=== PATIENT | female | born 2000 | race American Indian/Alaskan Native ===

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

== ENCOUNTER 2022-04-07 22:40 | Emergency (ER) | payer OTHER ==
[~2022-04-07] VITALS: Ht 157.5 cm; Wt 97.3 kg
[~2022-04-07 22:40] MED LIST changes: +AMOX875T2 PO; +CIPR0.3S6 OS
[2022-04-07 22:41] VITALS: BP 155/91
[2022-04-07 23:26] LABS: BASO % 0.4 % (0.0-1.0); EOS # 0.8 10^3/uL (0.0-0.5); HEMATOCRIT 40.7 % (36.0-47.0); HEMOGLOBIN 13.4 g/dl (12.0-15.5); LYMPH # 3.2 10^3/uL (1.5-5.0); MEAN CORPUSCULAR HEMOGLOBIN 29.8 pg (27.0-33.0); MEAN CORPUSCULAR HGB CONC 32.9 g/dl (32.0-36.5); MEAN CORPUSCULAR VOLUME 90.4 fl (80.0-96.0); MONO # 0.8 10^3/uL (0.0-0.8); MONO % 7.7 % (2.0-8.0); NEUTROPHILS # 5.5 10^3/uL (1.5-8.5); NEUTROPHILS % 52.5 % (36.0-66.0); PLATELET COUNT, AUTOMATED 399 10^3/uL (150-450); WHITE BLOOD COUNT 10.4 10^3/uL (4.0-10.0)
[2022-04-07 23:29] LABS: URINE PREG TEST NEGATIVE (NEGATIVE)
[2022-04-07 23:58] LABS: ALBUMIN 3.9 GM/DL (3.2-5.2); ALT/SGPT 31 U/L (12-78); BILIRUBIN,DIRECT < 0.1 MG/DL (0.0-0.2); BILIRUBIN,TOTAL 0.4 MG/DL (0.2-1.0); BLOOD UREA NITROGEN 14 MG/DL (7-18); CALCIUM LEVEL 9.1 MG/DL (8.5-10.1); CARBON DIOXIDE LEVEL 28 MEQ/L (21-32); CHLORIDE LEVEL 103 MEQ/L (98-107); CREATININE FOR GFR 0.67 MG/DL (0.55-1.30); GLUCOSE, FASTING 95 MG/DL (70-100); LIPASE 131 U/L (73-393); POTASSIUM SERUM 3.8 MEQ/L (3.5-5.1); SODIUM LEVEL 138 MEQ/L (136-145); TOTAL PROTEIN 7.2 GM/DL (6.4-8.2)
== END 2022-04-07 23:47 | disposition left against medical advice (07) ==
LOC: M ED 22:40
DX: Z53.21 Procedure and treatment not carried out due to patient leaving prior to being seen by health care provider (principal)

== ENCOUNTER → 2022-05-14 | Outpatient (REF) ==
[2022-05-14 14:43] LABS: RSV AMPLIFICATION NEGATIVE (NEGATIVE)
== END ==
LOC: M EMP 07:59
PROVIDERS: ATTEND Family Medicine
DX: Z11.59 Encounter for screening for other viral diseases (principal)

== ENCOUNTER → 2022-07-17 | Outpatient (REF) | payer OTHER ==
[2022-07-17 18:02] LABS: GC DNA AMPLIFICATION NEGATIVE (NEGATIVE)
== END ==
LOC: M LAB REF 16:02
PROVIDERS: ATTEND Physician Assistant
DX: H10.33 Unspecified acute conjunctivitis, bilateral (principal)

== ENCOUNTER 2022-10-14 22:45 | Inpatient (IN) | payer OTHER ==
[~2022-10-14] VITALS: Ht 157.5 cm; Wt 93.4 kg
[~2022-10-14 22:45] MED LIST changes: +CIPR0.3S37 OS; -CIPR0.3S6 OS
[2022-10-14] MEDS ORDERED: HOME MED LIST COMPLETE! XX SCH (23:40)
[2022-10-15 00:38] LABS: HEMATOCRIT 40.1 % (36.0-47.0); HEMOGLOBIN 13.3 g/dl (12.0-15.5); MEAN CORPUSCULAR HEMOGLOBIN 29.8 pg (27.0-33.0); MEAN CORPUSCULAR HGB CONC 33.2 g/dl (32.0-36.5); MEAN CORPUSCULAR VOLUME 89.9 fl (80.0-96.0); PLATELET COUNT, AUTOMATED 392 10^3/uL (150-450); RED BLOOD COUNT 4.46 10^6/uL (4.00-5.40); WHITE BLOOD COUNT 11.7 10^3/uL (4.0-10.0)
[2022-10-15 00:57] LABS: AMPHETAMINES LEVEL URINE NEGATIVE (NEGATIVE); BARBITURATES URINE NEGATIVE (NEGATIVE); BENZODIAZEPINES URINE NEGATIVE (NEGATIVE); COCAINE METABOLITE URINE NEGATIVE (NEGATIVE); METHADONE URINE NEGATIVE (NEGATIVE); PHENCYCLIDINE URINE NEGATIVE (NEGATIVE)
[2022-10-15 00:58] LABS: OPIATES URINE NEGATIVE (NEGATIVE)
[2022-10-15 01:04] LABS: CANNABINOIDS URINE POSITIVE (NEGATIVE)
[2022-10-15 01:12] LABS: ETHYL ALCOHOL (ETHANOL) 0.005 % (0.000-0.010)
[2022-10-15 01:14] LABS: ACETAMINOPHEN LEVEL < 2.0 UG/ML (10.0-20.0)
[2022-10-15 01:15] LABS: ALBUMIN 4.1 G/DL (3.2-5.2); ALKALINE PHOSPHATASE 93 U/L (46-116); ALT/SGPT 21 U/L (7.0-40); AST/SGOT 21 U/L (<34); BILIRUBIN,DIRECT 0.1 MG/DL (<0.4); BILIRUBIN,TOTAL 0.4 MG/DL (0.3-1.2); BLOOD UREA NITROGEN 13 MG/DL (9-23); CALCIUM LEVEL 9.6 MG/DL (8.5-10.1); CARBON DIOXIDE LEVEL 24 MMOL/L (20-31); CHLORIDE LEVEL 105 MMOL/L (98-107); CREATININE FOR GFR 0.65 MG/DL (0.55-1.30); GLUCOSE, FASTING 88 MG/DL (60-100); POTASSIUM SERUM 3.9 MMOL/L (3.5-5.1); SALICYLATE LEVEL < 3.0 MG/DL (<30); SODIUM LEVEL 138 MMOL/L (136-145); TOTAL PROTEIN 7.4 G/DL (5.7-8.2)
[2022-10-15 01:22] LABS: LITHIUM LEVEL < 0.20 MMOL/L (0.60-1.20)
[2022-10-15] MEDS ORDERED: NICOTINE 21MG/24HR 1 EA TRANSDERMAL TD SCH (09:00)
[2022-10-15] MEDS ORDERED: diphenhydrAMINE 25MG CAP PO PRN (12:40)
[2022-10-15] MEDS ORDERED: IBUPROFEN 400MG TAB PO PRN (12:40)
[2022-10-15] MEDS ORDERED: traZODone 50 MG TAB PO PRN (12:40)
[2022-10-15] MEDS ORDERED: MAALOX 30 ML SUSP *UDC PO PRN (12:40)
[2022-10-15] MEDS ORDERED: MOM 30ML SUSPENSION UDC PO PRN (12:40)
[2022-10-15 17:08] VITALS: BP 133/94
[2022-10-16 07:08] VITALS: BP 137/67
[2022-10-16] MEDS ORDERED: OLANZapine ORAL DISINTEGRATING TAB 5MG PO PRN (11:45)
[2022-10-16] MEDS: ARIPiprazole 2 MG TAB PO SCH (12:34)
[2022-10-16] MEDS: ESCITALOPRAM OXALATE 5MG TABLET (LEXAPRO) PO SCH (12:34)
[2022-10-16] MEDS: busPIRone 5 MG TAB PO SCH ×2 (12:34→21:39)
[2022-10-16] MEDS: hydrOXYzine 50 MG TAB PO PRN (15:52)
[2022-10-16] MEDS: ACETAMINOPHEN TAB 650MG DOSE (2X325MG) PO PRN (15:54)
[2022-10-16 15:56] VITALS: BP 133/80
[2022-10-17 06:21] VITALS: BP 132/89
[2022-10-17 08:04] LABS: CHOLESTEROL RISK RATIO 5.28 (<5); HDL CHOLESTEROL 38.8 MG/DL (>40); LDL CHOLESTEROL 139.2 MG/DL (<100); NON-HDL-C 166.2 MG/DL
[2022-10-17] MEDS: ARIPiprazole 2 MG TAB PO SCH (08:06)
[2022-10-17] MEDS: busPIRone 5 MG TAB PO SCH ×2 (08:06→20:59)
[2022-10-17] MEDS: ESCITALOPRAM OXALATE 5MG TABLET (LEXAPRO) PO SCH (08:06)
[2022-10-17] MEDS: ACETAMINOPHEN TAB 650MG DOSE (2X325MG) PO PRN (13:58)
[2022-10-17 16:19] VITALS: BP 131/76
[2022-10-17] MEDS: hydrOXYzine 50 MG TAB PO PRN (18:07)
[2022-10-18 06:40] VITALS: BP 116/69
[2022-10-18] MEDS: ARIPiprazole 2 MG TAB PO SCH (08:26)
[2022-10-18] MEDS: busPIRone 5 MG TAB PO SCH ×2 (08:26→20:07)
[2022-10-18] MEDS: ESCITALOPRAM OXALATE 5MG TABLET (LEXAPRO) PO SCH (08:26)
[2022-10-18] MEDS: ACETAMINOPHEN TAB 650MG DOSE (2X325MG) PO PRN (12:09)
[2022-10-18 16:37] VITALS: BP 128/80
[2022-10-19 06:19] VITALS: BP 138/83
[2022-10-19] MEDS: ESCITALOPRAM OXALATE 5MG TABLET (LEXAPRO) PO SCH (08:13)
[2022-10-19] MEDS: busPIRone 5 MG TAB PO SCH (08:13)
[2022-10-19] MEDS: ARIPiprazole 2 MG TAB PO SCH (08:13)
[2022-10-19] MEDS: hydrOXYzine 50 MG TAB PO PRN (08:53)
[2022-10-19] MEDS ORDERED: LEXA1TAB PO (09:34)
[2022-10-19] MEDS ORDERED: ARIP1TAB6 PO (09:34)
[2022-10-19] MEDS ORDERED: BUSP5TA PO (09:34)
== END 2022-10-19 13:24 | disposition home or self-care (01) | DRG 885 ==
LOC: M ED 23:55 → M ED INP 10-15 12:39 → M PSY 10-15 16:07
PROVIDERS: ADMIT Student in an Organized Health Care Education/Training Program; ATTEND Psychiatry & Neurology Psychiatry
DX: F31.81 Bipolar II disorder (principal); F41.9 Anxiety disorder, unspecified; F60.3 Borderline personality disorder; F12.90 Cannabis use, unspecified, uncomplicated

== ENCOUNTER 2022-12-18 06:00 | Emergency (ER) | payer OTHER ==
[~2022-12-18] VITALS: Ht 157.5 cm; Wt 93.0 kg
[~2022-12-18 06:00] MED LIST changes: +LEXA1TAB PO
[2022-12-18 06:06] VITALS: TEMP 96.8
[2022-12-18 06:48] LABS: BASO # 0.1 10^3/uL (0.0-0.2); BASO % 0.4 % (0.0-1.0); EOS # 0.5 10^3/uL (0.0-0.5); EOS % 3.1 % (0.0-3.0); HEMATOCRIT 42.7 % (36.0-47.0); HEMOGLOBIN 14.1 g/dl (12.0-15.5); LYMPH # 2.1 10^3/uL (1.5-5.0); LYMPH % 14.1 % (24.0-44.0); MEAN CORPUSCULAR HEMOGLOBIN 30.5 pg (27.0-33.0); MEAN CORPUSCULAR VOLUME 92.2 fl (80.0-96.0); MONO # 0.6 10^3/uL (0.0-0.8); MONO % 3.8 % (2.0-8.0); NEUTROPHILS # 11.8 10^3/uL (1.5-8.5); NEUTROPHILS % 78.1 % (36.0-66.0); PLATELET COUNT, AUTOMATED 432 10^3/uL (150-450); RED BLOOD COUNT 4.63 10^6/uL (4.00-5.40)
[2022-12-18 06:59] LABS: APPEARANCE, URINE CLOUDY (CLEAR); BACTERIA, URINE AUTO NEGATIVE (NEGATIVE); BILIRUBIN, URINE AUTO 1+ (NEGATIVE); BLOOD, URINE BLOOD 1+ (NEGATIVE); COLOR, URINE AMBER (YELLOW); GLUCOSE, URINE (UA) AUTO NEGATIVE (NEGATIVE); KETONE, URINE AUTO TRACE mg/dL (NEGATIVE); LEUKOCYTE ESTERASE, URINE AUTO 1+ (NEGATIVE); MUCUS, URINE LARGE (NEGATIVE); NITRITE, URINE AUTO NEGATIVE (NEGATIVE); PROTEIN, URINE AUTO 2+ mg/dL (NEGATIVE); RBC, URINE AUTO 12 /HPF (0-3); SPECIFIC GRAVITY URINE AUTO 1.032 (1.002-1.035); SQUAMOUS EPITHELIAL CELL UR AU 30 /HPF (0-6); WBC, URINE AUTO 7 /HPF (0-3)
[2022-12-18 07:10] LABS: LIPASE 28 U/L (12-53)
[2022-12-18 07:12] LABS: ALKALINE PHOSPHATASE 95 U/L (46-116); ALT/SGPT 24 U/L (7.0-40); AMYLASE 72 U/L (30-118); AST/SGOT 12 U/L (<34); BILIRUBIN,DIRECT 0.2 MG/DL (<0.4); BILIRUBIN,TOTAL 0.8 MG/DL (0.3-1.2); BLOOD UREA NITROGEN 11 MG/DL (9-23); CALCIUM LEVEL 9.9 MG/DL (8.5-10.1); CARBON DIOXIDE LEVEL 23 MMOL/L (20-31); CHLORIDE LEVEL 104 MMOL/L (98-107); CREATININE FOR GFR 0.62 MG/DL (0.55-1.30); GLUCOSE, FASTING 106 MG/DL (60-100); POTASSIUM SERUM 4.3 MMOL/L (3.5-5.1); SODIUM LEVEL 137 MMOL/L (136-145); TOTAL PROTEIN 7.5 G/DL (5.7-8.2)
[2022-12-18] MEDS ORDERED: ONDANSETRON 4MG 2ML VIAL IV ONE (07:40)
[2022-12-18] MEDS ORDERED: NS 1,000 ML IV ONE (07:40)
[2022-12-18 11:23] VITALS: BP 138/77; O2SAT 98
== END 2022-12-18 11:30 | disposition home or self-care (01) ==
LOC: M ED 06:00
DX: O21.0 Mild hyperemesis gravidarum (principal); Z3A.08 8 weeks gestation of pregnancy; Z79.899 Other long term (current) drug therapy
CPT/HCPCS: 76705; 76801; 80048; 80076; 81001; 82150; 83690; 85025; 87086; 96374; 99284; J2405

== ENCOUNTER → 2025-03-10 | Outpatient (RCR) ==
[~2025-03-10] MED LIST changes: +DOXY-441 PO; -DOXY-443 PO; +ONDA-282 PO; -ONDA4TAB6 PO
== END ==
LOC: M EMPSKH 02-21 14:53
PROVIDERS: ATTEND Family Medicine
DX: Z20.828 Contact with and (suspected) exposure to other viral communicable diseases (principal)